=== PATIENT | male | born 1980 | race Hispanic/Latino ===

== ENCOUNTER 2017-06-17 08:40 | Inpatient (IN) | payer OTHER ==
--- NOTE | 2017-06-17 09:37 | ED PDOC ---
Arrival/HPI - General Chief Complaint: Eye Problem Time Seen by Provider: 06/17/17 08:59 Historian: Patient - History of Present Illness Narrative History of Present Illness (Text): you were treated in the ED today for history of HTN, glomerulosclerosis, obesity , gynecomastia, questional pulmonary embolism with eliquis but you stated it was discontinued, on prednisone with now having gradual worsening of both eyes blurry vision and secondarily nose pain from hitting nose a month ago but otherwise without any recent head injury/loss of consciousness/neck pain/nausea/ vomiting/headache/dizziness/difficulty breathing/chest pain/abdomen pain/ numbness/tingling/loss of limb function/pain with urination. 06/17/17 11:29 Time/Duration: 24 hours Symptom Onset: Gradual Symptom Course: Unchanged Severity Level: 1 Activities at Onset: Rest Context: Sitting Past Medical History - Provider Review Nursing Documentation Reviewed: Yes - Travel History Have you recently traveled outside [place] w/in the past 3 mons?: No - Infectious Disease Hx of Infectious Diseases: None - Renal Hx Renal Failure: Yes Other/Comment: hx of kidney failure few yrs ago - Hematological/Oncological Hx Blood Transfusions: No Hx Blood Transfusion Reaction: No - Integumentary Hx Dermatological Disorder: Yes Other/Comment: Pt stated he touched a cabbage and his right hand became swollen ; Pt stated he was admited for two days in a hospital in [place] and given antibiotic. - Musculoskeletal/Rheumatological Hx Falls: No - Gastrointestinal Other/Comment: MOrbid Obesity - Psychiatric Hx Substance Use: No - Anesthesia Hx Anesthesia Reactions: No Hx Malignant Hyperthermia: No Family/Social History - Physician Review Nursing Documentation Reviewed: Yes Family/Social History: No Known Family HX Smoking Status: Never Smoked Hx Alcohol Use: No Hx Substance Use: No Allergies/Home Meds Allergies/Adverse Reactions: Allergies cabbage Allergy (Verified 06/17/15 05:50) SWELLING Home Medications: Home Meds Medication Instructions Recorded Confirmed No Known Home Med 06/17/17 06/17/17 Review of Systems - Review of Systems Constitutional: Normal Eyes: Vision Changes ENT: Other (nose pain) Respiratory: Normal Cardiovascular: Normal Gastrointestinal: Normal Genitourinary Male: Normal Musculoskeletal: Normal Skin: Normal Neurological: Normal Endocrine: Normal Hemo/Lymphatic: Normal Psychiatric: Normal Physical Exam Vital Signs Reviewed: Yes Vital Signs Temp Pulse Resp BP Pulse Ox 06/17/17 08:55 98.1 F 94 H 16 166/118 H 98 Temperature: Afebrile Blood Pressure: Hypertensive Pulse: Regular Respiratory Rate: Normal Appearance: Positive for: Well-Appearing, Non-Toxic, Comfortable Pain Distress: None Mental Status: Positive for: Alert and Oriented X 3 - Systems Exam Head: Present: Atraumatic, Normocephalic Pupils: Present: PERRL Extroacular Muscles: Present: EOMI Conjunctiva: Present: Normal Ears: Present: Normal Mouth: Present: Moist Mucous Membranes Pharnyx: Present: Normal Nose (External): Present: Atraumatic Nose (Internal): Present: Normal Inspection Neck: Present: Normal Range of Motion, Other (no c-t-l spinal or paraspinal tenderness) Medical Decision Making ED Course and Treatment: you were treated in the ED today for history of HTN, glomerulosclerosis, obesity , gynecomastia, questional pulmonary embolism with eliquis but you stated it was discontinued, on prednisone with now having gradual worsening of both eyes blurry vision and secondarily nose pain from hitting nose a month ago but otherwise without any recent head injury/loss of consciousness/neck pain/nausea/ vomiting/headache/dizziness/difficulty breathing/chest pain/abdomen pain/ numbness/tingling/loss of limb function/pain with urination. You were otherwise breathing easily, pink moist lips, mild nose discomfort, both eyes 20/200, without foreign body, conjunctiva white, smiling and talking easily, good strength/sensation, alert/oriented, walking easily, clear lungs, no abdomen tenderness, no fever temp 98.1, stable heart rate 94, stable breathing rate 16, excellent oxygen level 98% room air, elevated blood pressure 166/118 and repeat_ ____ which we recommend repeat in 2-3 days primary care office to determine further treatment, you have blood tests no infection count 8, stable blood level hemoglobin 12/platelets 336, stable chemistry, heart blood test pending, both radiology ct head no acute findings and ct facial showed no acute findings , ECG normal sinus rhythm, observation done in the ED without change. d/w Dr. Clarke neurology who stated possible retinal vessel involvement, recommend admit , ECHO with bolus, CTA head/neck, b/l LE US for DVT. d/w Dr. Martínez pt acute vision change, trop/potassium labs pending, and she stated can admit for acute vision change and order all tests per neurology and put in consult for opthalmology on-call today and she will followup up. Report Date : 06/17/2017 10:49:55 PROCEDURE: CT HEAD WITHOUT CONTRAST. Dictator : Jose Padilla MD IMPRESSION: No acute findings Report Date : 06/17/2017 11:05:37 PROCEDURE: CT MAXILLOFACIAL BONES WITHOUT CONTRAST Dictator : Jose Padilla MD IMPRESSION: Unremarkable non contrast enhanced CT of the maxillofacial bones. 06/17/17 11:16 06/17/17 11:18 paged neurology 06/17/17 11:40 06/17/17 11:43 Reassessment Condition: Re-examined, Unchanged - Lab Interpretations Lab Results: 06/17/17 09:40 06/17/17 09:40 Lab Results 06/17/17 09:40: Sodium 141, Potassium Pending, Chloride 101, Carbon Dioxide 28, Anion Gap 15, BUN 22 H, Creatinine 1.4, Est GFR ( Amer) > 60, Est GFR ( Non-Af Amer) 58, Random Glucose 105, Calcium 8.7, Total Bilirubin 0.3, AST 18, ALT 18, Alkaline Phosphatase 104, Troponin I Pending, Total Protein 8.1, Albumin 4.1, Globulin 4.0, Albumin/Globulin Ratio 1.0 L 06/17/17 09:40: PT 11.9, INR 1.03, APTT 30.4 06/17/17 09:40: WBC 8.6 D, RBC 5.90, Hgb 12.0 L, Hct 39.3 L, MCV 66.6 L, MCH 20.3 L, MCHC 30.5 L, RDW 17.6 H, Plt Count 336, MPV 9.8, Gran % 71.8 H, Lymph % (Auto) 22.3, Sierra % (Auto) 3.7, Eos % (Auto) 2.0, Baso % (Auto) 0.2, Gran # 6.17 , Lymph # (Auto) 1.9, Sierra # (Auto) 0.3, Eos # (Auto) 0.2, Baso # (Auto) 0.02 I have reviewed the lab results: Yes - RAD Interpretation Radiology Orders: 06/17/17 09:29 HEAD W/O CONTRAST [CT] Stat MAXILLOFACIAL W/O CONTRAST [CT] Stat 06/17/17 11:35 DUPLEX LOWER EXTRM VEIN BILAT [US] Stat 06/17/17 11:36 ANGIOGRAPHY HEAD [CT] Stat ANGIOGRAPHY NECK [CT] Stat Supply Cataloguer: Radiologist (see mdm) - EKG Interpretation Interpreted by ED Physician: Yes (NSR) Type: 12 lead EKG - Medication Orders Current Medication Orders: Discontinued Medications Aspirin (Aspirin Chewable) 324 mg PO STAT STA Stop: 06/17/17 11:26 Last Admin: 06/17/17 11:40 Dose: 324 mg NIHSS Stroke Scale 3 - Date/Time Evaluation Performed Date Performed: 06/17/17 When Was NIHSS Performed: Baseline - How Severe is the Stroke Level of Consciousness: 0=Alert LOC to Questions: 0=Both comments correct LOC to commands: 0=Obeys both correctly Best Gaze: 0=Normal Visual: 1=Partial hemianopia (left eye vision change can see from distance but not up close) Facial: 0=Normal Motor Arm - Left: 0=No drift Motor Arm - Right: 0=No drift Motor Leg - Left: 0=No drift Motor Leg - Right: 0=No drift Limb Ataxia: 0=Absent Sensory: 0=Normal Best Language: 0=No aphasia Dysarthia: 0=Normal articulation Extinction & Inattention (Neglect): 0=Normal, no object Score: 1 Disposition/Present on Arrival - Present on Arrival Any Indicators Present on Arrival: No History of DVT/PE: Yes History of Uncontrolled Diabetes: No Urinary Catheter: No History of Decub. Ulcer: No History Surgical Site Infection Following: None - Disposition Have Diagnosis and Disposition been Completed?: Yes Diagnosis: Blurring of visual image of both eyes Disposition: HOSPITALIZED Disposition Time: 11:47 Patient Plan: Telemetry Condition: STABLE Forms: [employer] ([place]er)
[2017-06-17 10:08] LABS: BASO # 0.02 K/mm3 (0.0-2.0); BASO % 0.2 % (0.0-3.0); EOS # 0.2 (0.0-0.7); GRAN # 6.17 (1.4-6.5); GRAN % 71.8 % (50.0-68.0); LYMPH # 1.9 (1.2-3.4); LYMPH % 22.3 % (22.0-35.0); MEAN CELL VOLUME 66.6 fl (80.0-105.0); MEAN CORPUSCULAR HEMOGLOBIN 20.3 pg (25.0-35.0); MEAN CORPUSCULAR HGB CONC 30.5 g/dl (31.0-37.0); MEAN PLATELET VOLUME 9.8 fl (7.0-11.0); MONO # 0.3 (0.1-0.6); MONO % 3.7 % (1.0-6.0); RBC 5.9 10^6/uL (3.5-6.1); RED CELL DISTRIBUTION WIDTH 17.6 % (11.5-14.5); WHITE BLOOD COUNT 8.6 10^3/ul (4.5-11.0)
[2017-06-17 10:18] LABS: INR 1.03 (0.93-1.08); PARTIAL THROMBOPLASTIN TIME 30.4 Seconds (25.1-36.5); PROTHROMBIN TIME 11.9 SECONDS (9.4-12.5)
[2017-06-17 10:29] LABS: ALBUMIN 4.1 g/dL (3.0-4.8); ALT/SGPT 18 U/L (7-56); AST/SGOT 18 U/L (17-59); BLOOD UREA NITROGEN 22 mg/dL (7-21); CALCIUM 8.7 mg/dL (8.4-10.5); GFR AFRICAN-AMERICAN > 60; GFR NON-AFRICAN AMERICAN 58
--- NOTE | 2017-06-17 10:51 | CT ---
PROCEDURE: CT HEAD WITHOUT CONTRAST. HISTORY: 36M, with vision blurriness COMPARISON: None available. TECHNIQUE: Axial computed tomography images were obtained through the head/brain without intravenous contrast. Radiation dose: Total exam DLP = 1028 mGy-cm. This CT exam was performed using one or more of the following dose reduction techniques: Automated exposure control, adjustment of the mA and/or kV according to patient size, and/or use of iterative reconstruction technique. FINDINGS: HEMORRHAGE: No intracranial hemorrhage. BRAIN: No mass effect or edema. No atrophy or chronic microvascular ischemic changes. VENTRICLES: Unremarkable. No hydrocephalus. CALVARIUM: Unremarkable. PARANASAL SINUSES: Unremarkable as visualized. No significant inflammatory changes. MASTOID AIR CELLS: Unremarkable as visualized. No inflammatory changes. OTHER FINDINGS: None. IMPRESSION: No acute findings
--- NOTE | 2017-06-17 11:07 | CT ---
PROCEDURE: CT MAXILLOFACIAL BONES WITHOUT CONTRAST HISTORY: 36yoM, with nasal bone injury COMPARISON: None TECHNIQUE: Contiguous axial CT images of the maxillofacial bones were obtained. Coronal and sagittal reformats were generated. Radiation dose: Total exam DLP = 754 mGy-cm. This CT exam was performed using one or more of the following dose reduction techniques: Automated exposure control, adjustment of the mA and/or kV according to patient size, and/or use of iterative reconstruction technique. FINDINGS: NASAL BONES: Unremarkable. ORBITS: Unremarkable. PARANASAL SINUSES/ MASTOIDS: Clear. MAXILLA: Unremarkable. MANDIBLE/ TEMPOROMANDIBULAR JOINTS: Unremarkable. SKULL BASE: Unremarkable. TEMPORAL BONES: Middle ears and mastoid grossly unremarkable. OTHER FINDINGS: None. IMPRESSION: Unremarkable non contrast enhanced CT of the maxillofacial bones.
[2017-06-17 12:21] LABS: TROPONIN I 0.01 ng/mL
--- NOTE | 2017-06-17 12:36 | CP.PCM.CON ---
History of Present Illness - History of Present Illness History of Present Illness: Neurology Consult note: 36 M with pmh of HTN, PE (Diagnosed on 06/16/15 - previously on Eliquis for 6 months following hospitalization), and focal segmental glomerulosclerosis ( previously on prednisone) presents to the ED with visual changes. Pt states that he has been having blurriness in both of his eyes for the past few weeks. Yesterday he woke up and he had a complete vision loss on his left eye, with right eye still seeing blurry. He denies any pain associated with his visual symptoms. He does states that he by mistake hit himself in the nose 2 weeks ago but denies any residual pain from that. He denies any nausea vomiting, dizziness , focal sensory or motor changes, numbness or tingling, sob, cp, abd pain, urinary changes. 12 Point ROS performed and neg other than stated above PMH: as above PSH: denies ALL: cabbage SH: denies any smoking or drugs, social etoh abuse FH: Denies Review of Systems - Review of Systems All systems: reviewed and no additional remarkable complaints except Past Patient History - Infectious Disease Hx of Infectious Diseases: None - Past Social History Smoking Status: Never Smoked - RENAL Hx Renal Failure: Yes Other/Comment: hx of kidney failure few yrs ago - HEMATOLOGICAL/ONCOLOGICAL Hx Blood Transfusions: No Hx Blood Transfusion Reaction: No - INTEGUMENTARY Hx Dermatological Problems: Yes Other/Comment: Pt stated he touched a cabbage and his right hand became swollen ; Pt stated he was admited for two days in a hospital in [place] and given antibiotic. - MUSCULOSKELETAL/RHEUMATOLOGICAL Hx Falls: No - GASTROINTESTINAL Other/Comment: MOrbid Obesity - PSYCHIATRIC Hx Substance Use: No - SURGICAL HISTORY Hx Surgeries: No - ANESTHESIA Hx Anesthesia Reactions: No Hx Malignant Hyperthermia: No Meds Allergies/Adverse Reactions: Allergies Allergy/AdvReac Type Severity Reaction Status Date / Time cabbage Allergy SWELLING Verified 06/17/15 05:50 Physical Exam - Constitutional Appears: No Acute Distress - Head Exam Head Exam: ATRAUMATIC, NORMOCEPHALIC - Eye Exam Eye Exam: EOMI. absent: Periorbital swelling, PERRL Pupil Exam: absent: NORMAL ACCOMODATION Additional comments: R eye: visual acuity intact, EOMI, sluggish accommodation L eye: sevrely diminished acuity possibly complete blindness, EOMI, minimal accommodation, barely reactive to light - ENT Exam ENT Exam: Mucous Membranes Moist - Respiratory Exam Respiratory Exam: Clear to Auscultation Bilateral. absent: Rales, Rhonchi, Wheezes - Cardiovascular Exam Cardiovascular Exam: RRR, +S1, +S2 - GI/Abdominal Exam GI & Abdominal Exam: Normal Bowel Sounds, Soft. absent: Distended, Tenderness - Extremities Exam Extremities exam: Negative for: calf tenderness, pedal edema - Neurological Exam Neurological exam: Alert, Oriented x3 - Psychiatric Exam Psychiatric exam: Normal Affect, Normal Mood - Skin Skin Exam: Dry, Intact, Warm Results - Vital Signs Recent Vital Signs: Last Vital Signs Temp 98.1 F 06/17/17 08:55 Pulse 94 H 06/17/17 08:55 Resp 16 06/17/17 08:55 BP 166/118 H 06/17/17 08:55 Pulse Ox 98 06/17/17 08:55 - Labs Result Diagrams: 06/17/17 09:40 06/17/17 09:40 Assessment & Plan - Assessment and Plan (Free Text) Assessment: 36 M with pmh of HTN, PE (previously on Eliquis), and focal segmental glomerulosclerosis (previosuly on prednisone) presents to the ED with visual changes - with sudden L eye complete blindness r/o central artery occlusion. - Pt is not a candidate for TPA since he is out of 3-4.5 hr window. - CT head - negative - CT maxillo/facial - unremarkable - CTA of head &neck and angio of the neck ordered - US of ext ordered - F/u Echo with bubble study - Aspirin 325mg x 1 given in the ED - F/u ophthalmology consult and recs - Cont to monitor patient clinical course. Case and plan was reviewed and discussed with Dr Clarke.
--- NOTE | 2017-06-17 14:15 | CARD ---
APPROVED REPORT EKG Measurement Heart [id number] <Conclusion> Normal sinus rhythm NSTT changes. Base line arftefact taryn repeat
[2017-06-17 14:25] VITALS: BMI 63.0
[2017-06-17] MEDS ORDERED: Influenza Vaccine 60 mcg/0.5 mL SYR (4YR UP) IM ONE (14:25)
[2017-06-17] MEDS ORDERED: Pneumococcal 23-Valent Vaccine IM ONE (14:25)
--- NOTE | 2017-06-17 17:47 | US ---
HISTORY: Leg pain and swelling. Evaluate for DVT PHYSICIAN(S): Maximilian Johnson MD. TECHNIQUE: Duplex sonography and color-flow Doppler with graded compression were used to evaluate the deep venous systems of both lower extremities. The exam is very limited by body habitus and edema. The tibial veins are not adequately seen. FINDINGS: The visualized deep venous systems of both lower extremities are sonographically normal and compressible. Normal wave forms and augmentation are seen. There is no sonographic evidence for deep venous thrombosis in the visualized segments of both lower extremities. IMPRESSION: No sonographic evidence for deep venous thrombosis in the visualized segments of both lower extremities. Very limited study
[2017-06-17] MEDS: acetaZOLAMIDE 500 mg SR Cap PO SCH (19:46)
[2017-06-17 21:18] VITALS: O2SAT 98
--- NOTE | 2017-06-18 06:32 | CON ---
DATE: 06/17/2017 HISTORY OF PRESENT ILLNESS: The patient is a 36-year-old male with a reported history of pneumonia couple of years ago, for which he reports he had some kidney damage. He reports he has no history of diabetes or hypertension. He presented with a one-week history of blurred vision in his left eye, culminating on Saturday reporting that he had no vision at all. He presented to the ER the next day, which is Saturday. He reports no pain. His vision in the right eye is about 20/17 near. Left eye has no light perception. He has afferent pupillary defect in his left eye with slit lamp exam. His pressures are within normal limit. His anterior segment exam is normal. His posterior exam shows papilledema, worse on the left eye than the right eye. I do not see any retinal hemorrhages. I do not see any occlusions of any blood vessels. I do not see any macular edema in both eyes. ASSESSMENT: Papilledema. RECOMMENDATION: Due to the severe loss of vision in his left eye, I started Diamox 500 mg twice a day immediately. I also spoke with Dr. Martínez, who recommended getting Neurology consultation to see if there is any other course of action that would increase his medical treatment. I will touch base again with Dr. Martínez this week. If the patient is not improving, may recommend discussion with Neurology, who would recommend potentially if the patient needs to be transferred or not. At this point, we will see how he does on medication and see what Neurology recommend. If any question, you can call [phone]. Wiliam Denny MD
[2017-06-18 07:11] LABS: HEMOGLOBIN 10.8 g/dL (14.0-18.0); MEAN CELL VOLUME 66.5 fl (80.0-105.0); MEAN PLATELET VOLUME 9.4 fl (7.0-11.0); RBC 5.41 10^6/uL (3.5-6.1); RED CELL DISTRIBUTION WIDTH 17.9 % (11.5-14.5); WHITE BLOOD COUNT 8.4 10^3/ul (4.5-11.0)
[2017-06-18 07:28] LABS: BLOOD UREA NITROGEN 18 mg/dL (7-21); CALCIUM 8.7 mg/dL (8.4-10.5); GFR AFRICAN-AMERICAN > 60; GFR NON-AFRICAN AMERICAN 54; HDL CHOLESTEROL 36 mg/dL (29-60); IRON 39 ug/dL (45-180)
[2017-06-18 07:38] LABS: % IRON SATURATION 14 % (20-55); TOTAL IRON BINDING CAPACITY 274 ug/dL (261-462)
[2017-06-18 07:39] LABS: LDL CHOLESTEROL 104 mg/dL (0-129)
[2017-06-18] MEDS: Potassium Chloride 20 mEq ER Tab PO SCH ×2 (08:59→13:24)
[2017-06-18] MEDS: acetaZOLAMIDE 500 mg SR Cap PO SCH (11:46)
--- NOTE | 2017-06-18 11:55 | HP ---
CHIEF COMPLAINT: "I cannot see from eyes." HISTORY OF PRESENT ILLNESS: Mr. Jaydon Rios is 36 year old male with history of hypertension, glomerulosclerosis, obesity, gynecomastia with severe pulmonary embolism in the past, was on Eliquis, according to him discontinued on prednisone with now having gradual worsening of both eyes, blurring of vision, and secondarily, nose pain from hitting nose a month ago, but otherwise without any recurrent head injury or loss of consciousness. No neck pain. No nausea, vomiting or diarrhea. No headache, no dizziness. No difficulty breathing, no chest pain, no abdominal pain. No tingling of limbs. No dysuria. No hematuria, no hematochezia. PAST MEDICAL HISTORY: As above. History of renal failure, history of kidney failure a few years ago due to glomerulosclerosis as per the patient. The patient states he cut a cabbage and his right hand became swollen. The patient stated that he was admitted for two days in the hospital in [place] and was given antibiotics, morbid obesity. FAMILY HISTORY: Father and mother, noncontributory. HABITS: Never smoked. No drug, no ethanol. ALLERGIES: ALLERGIC WITH CABBAGE. HOME MEDICATIONS: Cannot recall. REVIEW OF SYSTEMS: The patient seen and examined at the bedside in his room, looking comfortable, has vision problem, nose pain. No hematuria or hematochezia, no swelling of the legs, no chest pain, no palpitations, no dysuria, no headache. PHYSICAL EXAMINATION VITAL SIGNS: Temperature 98.1, pulse 94, respiratory rate 16, blood pressure 156/118, pulse oximetry 98. HEENT: Head: Normocephalic, atraumatic. Eyes, PERRLA. Extraocular muscles intact. Conjunctivae clear. Nose, patent. NECK: Supple. No carotid bruit. No JVD or thyromegaly. CHEST: Bilaterally symmetrical. HEART: S1 and S2 positive. LUNGS: Clear to auscultation. ABDOMEN: Soft. Bowel sounds present. No organomegaly. EXTREMITIES: No edema, no cyanosis. NEUROLOGIC: The patient is awake and alert. Moving all 4 extremities. No focal deficits. LABORATORY DATA: White blood cells 8.6, hemoglobin 12.0, hematocrit 31.3, platelets 336,000. Sodium 141, chloride 101, carbon dioxide 28, BUN 22, creatinine 1.4, glucose 105. ASSESSMENT AND PLAN: Mr. Jaydon Rios is 36 year old male with anemia, renal insufficiency, has comorbid obesity, came with blurring of the vision of both eyes, history of hypertension, glomerulosclerosis, obesity, gynecomastia, pulmonary embolism with Eliquis. Did CAT scan of the head, reviewed by me, looks like no acute finding. Maxillofacial CAT scan done, unremarkable noncontrast enhanced CAT scan of the maxillofacial bones. Extremity ultrasound done, showed no sonographic evidence of deep vein thrombosis in the visualized segments of both lower extremities. 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 An MRA of the brain without contrast is also recommended for further evaluation. Continue permissive hypertension, but treat blood pressure higher than 220/110 with labetalol and if it is not controlled, start Cardene drip as per neurologist. The patient's pulmonary embolism was diagnosed in 06/16/2015. The patient is seen by the gis engineer, Dr. Doe, phone number [phone]. Length of time discussion done about this patient's situation. Diamox started. According to the patient, the patient was on prednisone for focal segmental glomerulosclerosis with sudden left eye complete blindness, rule out central artery occlusion. The patient is not a candidate of tissue plasminogen activator since he is out 3 to 4 hours of window. As he has his blindness for couple of days, needed echo with bubble studies. Continue to monitor clinically. Discussion done with the patient. Araceli Martínez MD [facility]
[2017-06-18] MEDS ORDERED: Lidocaine 1% Inj (20ml) IJ STA (12:07)
[2017-06-18 12:54] VITALS: BP 164/118; RESP 20; TEMP 98.5
[2017-06-18] MEDS ORDERED: Labetalol 5 mg/ml Inj 20ML IV ONE (12:59)
[2017-06-18 13:23] LABS: FOLATE 15.5 ng/mL
[2017-06-18 13:30] VITALS: PULSE 88
[2017-06-18 14:12] LABS: URINE BILIRUBIN NEGATIVE (NEGATIVE); URINE BLOOD NEGATIVE (NEGATIVE); URINE GLUCOSE (UA) NEGATIVE (NEGATIVE); URINE LEUKOCYTE ESTERASE NEGATIVE Leu/uL (NEGATIVE); URINE NITRATE NEGATIVE (NEGATIVE); URINE PROTEIN 100 mg/dL (<30 mg/dL); URINE UROBILINOGEN 0.2 E.U./dL (<1 E.U./dL)
[2017-06-18 14:19] LABS: URINE APPEARANCE CLEAR (CLEAR); URINE BACTERIA NEG (NEG); URINE COLOR YELLOW (YELLOW); URINE EPITHELIAL CELLS 0 - 2 /hpf (0-5); URINE RBC NEGATIVE /hpf (0-2); URINE WBC 0 - 2 /hpf (0-6)
[2017-06-18 14:22] LABS: CREATININE,RANDOM URINE 80 mg/dL
--- NOTE | 2017-06-18 14:43 | PCM.PROC ---
Procedures Attestation:: I certify that I have explained the specified Operation(s) or Procedure(s), risks, benefits and reasonable alternatives to the Patient and/or other person responsible. The opportunity was given to ask questions and all questions answered - Lumbar Puncture Consent Obtained: Written Consent Time Out Performed: Yes Patient Position: Upright Skin Prep: Povidone-Iodine 1% Local Anesthetic Used: Lidocaine 1% Spinal Needle Gauge: 20G Interspace Used: L4-L5 Fluid Initially Obtained: Other Complications: None, Other Additional comments: Due to the patients body habitus and elevated BMI we were unable to obtain CSF via the 3.5'in needle in the LP tray. Order placed for LP under fluoro.
--- NOTE | 2017-06-18 16:58 | CT ---
PROCEDURE: CT Angiography of the neck with contrast HISTORY: Visual loss. COMPARISON: Comparison made with prior CT scan brain 07/15/2017. TECHNIQUE: Contiguous helical/transaxial images of the neck and brain were obtained from the level of the skull-base to the superior mediastinum in the arteriographic phase of enhancement. Coronal and sagittal reformats or also generated. IV contrast dose: 150 cc Omnipaque 350 Radiation Dose - DLP: 859.27 mGy-cm This CT exam was performed using one or more of the following dose reduction techniques: Automated exposure control, adjustment of the mA and/or kV according to patient size, and/or use of iterative reconstruction technique. . Note the examination is limited the due to large body habitus. FINDINGS: The visualized common carotid arteries common carotid bifurcations, internal carotid arteries including the PE trace, cavernous and supraclinoid segments appear widely patent without evidence of occlusion. . No significant atherosclerosis or evidence of any significant stenosis. The visualized vertebral arteries are also patent throughout without evidence of occlusion or significant stenosis. Basilar artery on is also patent. Visualized major branches of the [place] are patent with no evidence of occlusion or significant stenosis. The distal anterior middle and cerebral branches are also symmetric. No evidence of large aneurysm nor vascular malformation. IMPRESSION: Limited study due to large body habitus. No evidence of occlusion or significant stenosis.
[2017-06-18] MEDS ORDERED: Sodium Chloride 0.9% 500 ML IV SCH (17:00)
--- NOTE | 2017-06-18 17:13 | CP.PCM.PN ---
Subjective - Date & Time of Evaluation Date of Evaluation: 06/18/17 Time of Evaluation: 10:00 - Subjective Subjective: Neuro progress note: Pt seen and examined at bedside. No acute events overnight. Pt still complaining of L eye blindness and states that the R eye blurriness has remained unchanged. No headaches or dizziness. No other complaints. 12 Point ROS performed and neg other than stated above. Objective - Vital Signs/Intake and Output Vital Signs (last 24 hours): Temp Pulse Resp BP Pulse Ox 98.5 F 88 20 164/118 H 98 06/18/17 12:00 06/18/17 13:27 06/18/17 12:00 06/18/17 13:27 06/18/17 06:00 Intake and Output: 06/18/17 06/18/17 06:59 18:59 Intake Total 0 0 Balance 0 0 - Medications Medications: Current Medications Acetazolamide (Diamox Sequels 500 Mg Sr Cap) 500 mg PO BID [facility] Last Admin: 06/18/17 11:46 Dose: 500 mg Amlodipine Besylate (Norvasc) 5 mg PO DAILY [facility] Last Admin: 06/18/17 13:27 Dose: 5 mg Sodium Chloride (Sodium Chloride 0.9%) 500 mls @ 50 mls/hr IV .Q10H [facility] Stop: 06/19/17 03:01 Labetalol HCl (Trandate) 100 mg PO Q8H PRN PRN Reason: Systolic Blood Pressure - Labs Labs: 06/18/17 06:45 06/18/17 07:00 PT 11.9 SECONDS (9.4-12.5) 06/17/17 09:40 INR 1.03 (0.93-1.08) 06/17/17 09:40 APTT 30.4 Seconds (25.1-36.5) 06/17/17 09:40 - Constitutional Appears: No Acute Distress - Eye Exam Eye Exam: EOMI. absent: PERRL Pupil Exam: absent: NORMAL ACCOMODATION Additional comments: Unchanged from prior exam. - Neurological Exam Neurological Exam: Alert, Awake, Oriented x3 Neuro motor strength exam: Left Upper Extremity: 5, Right Upper Extremity: 5, Left Lower Extremity: 5, Right Lower Extremity: 5 Additional comments: Unchanged from Prior exam Assessment and Plan - Assessment and Plan (Free Text) Assessment: 36 M with pmh of HTN, PE (previously on Eliquis), and focal segmental glomerulosclerosis (previosuly on prednisone) presents to the ED with visual changes - with sudden L eye complete blindness r/o central artery occlusion. - Consult ophthalmology - b/l Papilledema worse on the Left, started on Acetazolamide - Plan to transfer the patient to [facility] for neuro / opth department for further evaluation and possible surgery - MRI brain attempted but not performed due to patients body habitus - CTA ordered - limited test but negative - CT head - negative - CT maxillo/facial - unremarkable - US of ext - neg - F/u Echo with bubble study - HOB elevation to 35' - Maintain systolic BP<160 and diastolic <100 - Aspirin 325mg x 1 given in the ED - Cont to monitor patient clinical course Case and plan was reviewed and discussed with Dr Clarke.
--- NOTE | 2017-06-19 02:30 | CON ---
DATE: NEPHROLOGY CONSULTATION LOCATION: [facility]. HISTORY OF PRESENT ILLNESS: Patient is a 36-year-old male with past medical history of FSGS with nephrotic syndrome, morbid obesity, presented to ED yesterday after experiencing sudden onset of left eye blindness 2 days ago; Nephrology being consulted for renal insufficiency. Patient has not followed up with any physician over the past 1+ year; he was diagnosed in 06/2015 with FSGS based on renal biopsy after presenting with acute renal failure and nephrotic syndrome; at that time, patient was placed on prednisone and also started on anticoagulation for suspected PE per V/Q scan; patient reports having been off of both steroids and anticoagulation since over 1 year. Patient has been in his usual state of health up until the sudden blindness occurred; has not had any improvement in vision since then; no involvement of right eye; patient, otherwise, reports energy level is well, has been eating well. Denies any headaches, dizziness. No swelling in his legs. Patient has not had any weight changes lately. Appetite has been good, has been urinating well. Denies frothy urine. PAST MEDICAL HISTORY: As above. SOCIAL HISTORY: Does not smoke. FAMILY HISTORY. Patient unsure. REVIEW OF SYSTEMS: CONSTITUTIONAL: No weight loss, good appetite. No fever or night sweats. HEENT: As per HPI. RESPIRATORY: No cough. CARDIOVASCULAR: No dyspnea on exertion. No swelling of legs. GASTROINTESTINAL: No nausea, vomiting or diarrhea. GENITOURINARY: No difficulty urinating. MUSCULOSKELETAL: Denies any aches or pains, denies taking pain medications. NEUROLOGIC: Denies any numbness in his feet. PHYSICAL EXAMINATION: VITAL SIGNS: This afternoon, blood pressure 164/118, heart rate 86, respirations 20, temperature 98.5, O2 sat 98% on room air. GENERAL: No distress. Conversing coherently in full sentences. HEENT: Moist mucous membranes. Nonicteric. No cervical lymphadenopathy. RESPIRATORY: Lungs clear to auscultation bilaterally. No rales or rhonchi. No wheezes. CARDIOVASCULAR: Heart sounds S1, S2 normal. No murmurs, no gallops, no rubs. EXTREMITIES: No lower leg edema. GASTROINTESTINAL: Abdomen soft, nontender, nondistended. Morbidly obese. GENITOURINARY: Unable to appreciate bladder distention. PSYCHIATRIC: Normal mood, normal affect. LABORATORY DATA: This morning, CBC: WBC 8.4, hemoglobin 10.8, hematocrit 36.0, platelets 327. Chemistry panel: Sodium 139, potassium 3.2, chloride 100, bicarb 28, BUN 18, creatinine 1.5, glucose 96, calcium 8.7, albumin from yesterday 4.1. Iron studies: Iron 39, TIBC 274, saturation 14%. Hemoglobin A1c 5.7. UA: Urine protein 100 mg/dL, no blood, no rbc's. Rest of urine studies pending. Urine micro directly observed. Occasional wbc's and rbc's, otherwise relatively bland urine sediment. ASSESSMENT AND PLAN: 1. Chronic kidney disease. Patient with biopsy-proven focal segmental glomerulosclerosis with nephrotic syndrome previously; appears to have remained in remission with subnephrotic range proteinuria per urinalysis and renal function largely preserved. Etiology of chronic kidney disease is attributed to focal segmental glomerulosclerosis; however, there is still some concern for secondary causes including antiphospholipid syndrome as the patient had mildly elevated titers of antiphospholipid antibody; no mention of thrombotic angiopathy on renal biopsy at that time; nevertheless, patient did have pulmonary embolism and now there is concern for retinal artery thrombosis. We will obtain random urine for protein and creatinine. Recommend Hematology referral. Patient was following with Dr. Yarbrough to reassess for possibility of antiphospholipid syndrome. 2. Proteinuria, subnephrotic range, should be on ozhuq-tyjmuhcaval-ejivqldxssp system blockade long-term; since the patient just received intravenous contrast CT study, we will hold off for now. 3. Hypertensive chronic kidney disease. Blood pressure markedly uncontrolled. I agree with starting amlodipine 10 mg daily; we will place on losartan long-term; can use labetalol p.r.n. for now. 4. Anemia with some degree of iron deficiency. We will check ferritin level. 5. Hypokalemia, relatively mild, but likely precipitated by being started on Diamox. We will replenish with 80 mEq via p.o. route. Thank you for this referral. We will be following up closely. Piter Saha MD
--- NOTE | 2017-06-19 23:37 | DS ---
CHIEF COMPLAINT: "I cannot see from my eyes." HISTORY OF PRESENT ILLNESS: Mr. Jaydon Rios is a 36-year-old male with history of hypertension, glomerulosclerosis, obesity, gynecomastia, with severe pulmonary embolism in the past, was on Eliquis according to him and on prednisone, came with worsening blurring of vision of both eyes and nose pain from hitting nose one month ago, recurrent headache and loss of consciousness. No neck pain. No nausea, vomiting or diarrhea. We admitted the patient, did CAT scan of the head, maxillofacial CAT scan. Came with the ultrasound, head and neck CTA, seen by Dr. Vince Ray, neurologist, and Dr. Wiliam Denny. Discussion done with Dr. Denny. Consultation [facility] for Neurology and Ophthalmology departments for further evaluation and possibly surgery. Discussion done with Dr. Loredo. PAST MEDICAL HISTORY: As above, morbid obesity, history of PE - was on Eliquis, history of glomerulosclerosis, renal failure. FAMILY HISTORY: Father and mother noncontributory. HABITS: Never smoked. No drug, no ethanol. ALLERGIES: THE PATIENT IS ALLERGIC WITH CABBAGE. HOME MEDICATIONS: Patient not remember. REVIEW OF SYSTEM: The patient seen and examined at the bedside. The patient is very obese. Neurologist Dr. Ray tried to do LP, but cannot do due to patient's body habitus and elevated BMI, we were unable to obtain CSF via the 3-1/2 inch needle in the LP tray. Order placed for LP under fluoroscopy. No fever. No chills. No nausea, vomiting or diarrhea. No hematuria or hematochezia. No change in the status overnight. Still has blurring of vision. PHYSICAL EXAMINATION: VITAL SIGNS: Temperature 98.5, pulse 88, blood pressure 154/118, respiratory rate 20. HEENT: Head normocephalic, atraumatic. Eyes, open. Extraocular muscles intact. Conjunctivae clear. Nose, patent. Mucous membrane moist. NECK: Supple. No carotid bruits or thyromegaly. CHEST: Bilaterally symmetrical. HEART: S1 and S2 positive. LUNGS: Clear to auscultation. ABDOMEN: Soft. Bowel sounds present. No organomegaly. EXTREMITIES: No edema. No cyanosis. NEUROLOGIC: The patient is awake and alert. Moving all 4 extremities. No focal deficits MEDICATIONS: Diamox, K-Dur, lidocaine, Norvasc, NS, labetalol. LABORATORY DATA: White blood cells 8.4, hemoglobin 10.8, hematocrit 36.0, platelets 327. Sodium 139, potassium 3.2, replaced. BUN 18, creatinine 1.5, glucose 96. Iron 39. ASSESSMENT AND PLAN: Mr. Jaydon Rios is a 36-year-old male with anemia, hypokalemia. iron deficiency, proteinuria, microalbuminuria. Nephrology consult called. Neurology consult called. Pulmonology saw the patient. Patient has history of hypertension, pulmonary embolism, previously on Eliquis, and focal segmental glomerulosclerosis, previously on prednisone, who came to the emergency room with visual changes with sudden onset left eye complete blindness rule out central artery occlusion. Per Dr. Denny, the patient had bilateral papillary edema, worse on the left, started on acetazolamide. The patient is transferred to [facility] for Neurology and Ophthalmology departments for further evaluation and possibly surgery. MRA of the brain attempted, but not performed due to the patient's body habitus. CT of head is negative. CT of maxillary/facial is unremarkable. Ultrasound of extremity negative. Need echo with bubble study. Aspirin one dose given. Dr. Cory Clarke tried to do lumbar puncture, but could not because of the patient's body habitus. Discussion done with Dr. Loredo, he will follow up the patient in [facility]. Repeat labs. We will follow up. Araceli Martínez MD
== END 2017-06-18 17:33 | disposition short-term general hospital (02) | DRG 92 ==
LOC: ED 08:40 → ERH 11:44 → 3RSO 16:52
PROVIDERS: ADMIT Internal Medicine; ATTEND Internal Medicine
PROC: 00JU3ZZ Inspection of Spinal Canal, Percutaneous Approach (ICD-10-PCS; principal; 2017-06-18)
DX: H47.10 Unspecified papilledema (principal); N04.9 Nephrotic syndrome with unspecified morphologic changes; E66.01 Morbid (severe) obesity due to excess calories; Z68.44 Body mass index [BMI] 60.0-69.9, adult; H54.62 Unqualified visual loss, left eye, normal vision right eye; I12.9 Hypertensive chronic kidney disease with stage 1 through stage 4 chronic kidney disease, or unspecified chronic kidney disease; N18.9 Chronic kidney disease, unspecified; N26.9 Renal sclerosis, unspecified; D50.9 Iron deficiency anemia, unspecified; E87.6 Hypokalemia; Z79.02 Long term (current) use of antithrombotics/antiplatelets; Z79.82 Long term (current) use of aspirin; Z86.711 Personal history of pulmonary embolism; Z87.01 Personal history of pneumonia (recurrent); Z87.441 Personal history of nephrotic syndrome; Z91.018 Allergy to other foods; N62 Hypertrophy of breast; R80.9 Proteinuria, unspecified